=== PATIENT | female | born 1965 | race Caucasian/White ===

== ENCOUNTER 2018-08-09 14:38 | Emergency (ER) | payer OTHER ==
[~2018-08-09] VITALS: Ht 162.5 cm; Wt 65.8 kg
[~2018-08-09 14:38] MED LIST: ABILIFY15 MG PO; BUSPAR15 MG PO; LEVAQUIN750 M1 PO; PREDNISONE10 MG PO; PROPRANOLOL ER80 MG PO; PROZAC10 MG PO; SYNTHROID25 MCG PO; VITAMIN D-32000 UNI1 PO; ZOCOR40 MG PO
[2018-08-09] MEDS ORDERED: PROZAC20 MG PO (14:41)
[2018-08-09] MEDS ORDERED: DELTASONE20 M1 PO (16:25)
[2018-08-09] MEDS ORDERED: LEVAQUIN750 M1 PO (16:25)
[2018-09-23] MEDS ORDERED: CHANTIX1 M1 PO (08:13)
[2018-09-23] MEDS ORDERED: BREO ELLIPTA 11 EACH INH (08:13)
== END 2018-08-09 16:39 | disposition home or self-care (01) ==
LOC: ED 14:38
DX: J20.9 Acute bronchitis, unspecified (principal); J44.9 Chronic obstructive pulmonary disease, unspecified; E78.5 Hyperlipidemia, unspecified; E03.9 Hypothyroidism, unspecified; G43.909 Migraine, unspecified, not intractable, without status migrainosus; F17.200 Nicotine dependence, unspecified, uncomplicated; Z88.1 Allergy status to other antibiotic agents; Z79.899 Other long term (current) drug therapy